=== PATIENT | female | born 1975 | race Two or more races ===

== ENCOUNTER 2017-10-08 23:43 | Inpatient (IN) | payer OTHER ==
[~2017-10-08] VITALS: Ht 167.6 cm; Wt 82.0 kg
[2017-10-09 04:21] VITALS: BP 160/98
[2017-10-09] MEDS: SODIUM CHLORIDE 0.9% 1,000 ML IV SCH ×2 (04:58→16:30)
[2017-10-09] MEDS ORDERED: PLEASE ENTER ALLERGIES MC SCH ×2 (05:00)
[2017-10-09] MEDS ORDERED: LISI1TAB5 PO (05:09)
[2017-10-09] MEDS ORDERED: ACETAMINOPHEN 325 MG TABLET PO PRN (05:30)
[2017-10-09] MEDS ORDERED: hydrALAzine 20 MG/ML, 1ML IVPush PRN (05:30)
[2017-10-09] MEDS ORDERED: ONDANSETRON 2MG/ML, 2ML IVPush PRN (05:30)
[2017-10-09] MEDS ORDERED: morphine SULFATE 10 MG/ML, 1ML IVPush PRN (05:30)
[2017-10-09 05:37] LABS: IS PT STATUS REG ER OR PRE ER? NO
[2017-10-09 08:30] VITALS: BP 154/91
[2017-10-09] MEDS ORDERED: HYDROCHLOROTHIAZIDE 12.5 MG CAPSULE PO SCH (09:00)
[2017-10-09] MEDS ORDERED: LISINOPRIL 20 MG TABLET PO SCH (09:00)
[2017-10-09] MEDS ORDERED: REGADENOSON 0.4 MG/5 ML SYRINGE ONE (09:24)
[2017-10-09] MEDS ORDERED: OMNIPAQUE 350 MG/ML, 100ML BOTTLE ONE (10:37)
[2017-10-09 13:47] VITALS: BP 108/70
[2017-10-09] MEDS ORDERED: METO25TA91 PO (17:10)
[2017-10-10] MEDS ORDERED: METOPROLOL SUCCINATE 25 MG TAB.ER.24H PO SCH (06:00)
== END 2017-10-09 17:51 | disposition home or self-care (01) | DRG 313 ==
LOC: 5SO 10-09 04:16
PROVIDERS: ADMIT Hospitalist; ATTEND Hospitalist
DX: R07.89 Other chest pain (principal); I05.8 Other rheumatic mitral valve diseases; I10 Essential (primary) hypertension; Z82.49 Family history of ischemic heart disease and other diseases of the circulatory system; Z86.79 Personal history of other diseases of the circulatory system; Z98.51 Tubal ligation status
CPT/HCPCS: 36415; 71275; 78452; 80061; 84484; 93017; 93306; J2785; Q9967; A9502; C9898; J7030

== ENCOUNTER → 2018-09-24 | Outpatient (CLI) | payer BC, OTHER ==
[~2018-09-24] MED LIST: LISI1TAB5 PO; METO25TA91 PO; OMNIPAQUE 350 MG/ML, 100ML BOTTLE ONE
== END | disposition home or self-care (01) ==
LOC: CFH 12:48
PROVIDERS: ATTEND Internal Medicine Cardiovascular Disease
DX: I77.810 Thoracic aortic ectasia (principal)
CPT/HCPCS: 71275; Q9967